=== PATIENT | male | born 1965 | race Caucasian/White ===

== ENCOUNTER → 2017-09-16 10:55 | Outpatient (REF) | payer OTHER, SELFPAY ==
[2017-09-16 14:42] LABS: Basophils # 0.1 K/mm3 (0-0.2); Basophils % 0.9 % (0.1-2.0); Eosinophils # 0.2 K/mm3 (0.0-0.4); Eosinophils % 1.6 % (0.1-12.0); Hematocrit 54.1 % (42.0-52.0); Hemoglobin 17.2 g/dL (14.1-18.0); Lymphocytes # 2.8 K/mm3 (0.7-4.5); Lymphocytes % 24.4 K/mm3 (10-50); Mean Corpuscular HGB Conc 31.7 g/dL (31.8-35.4); Mean Corpuscular Hemoglobin 30.7 pg (27.0-31.2); Mean Corpuscular Volume 96.9 fl (80-94); Mean Platelet Volume 7.5 fl (7.4-10.4); Monocytes # 0.7 K/mm3 (0.1-1.0); Monocytes % 5.7 % (1.7-9.3); Neutrophils # 7.8 K/mm3 (1.8-7.8); Neutrophils % 67.4 % (37.0-80.0); Platelet Count 394 K/mm3 (142-424); Red Blood Count 5.59 M/mm3 (4.60-6.20); Red Cell Distribution Width 13.4 % (11.5-17.5); White Blood Count 11.6 K/mm3 (4.8-10.8)
[2017-09-16 14:47] LABS: Alanine Aminotransferase 20 U/L (12-78); Albumin Level 4.5 gm/dL (3.4-5.0); Albumin/Globulin Ratio 1.2 (1.1-1.8); Alkaline Phosphatase 105 U/L (46-116); Anion Gap 15.4 mEq/L (5-15); Aspartate Amino Transferase 16 U/L (15-37); Bilirubin,Total 0.2 mg/dL (0.2-1.0); Blood Urea Nitrogen 11 mg/dL (7-18); Calcium 9.7 mg/dL (8.5-10.1); Carbon Dioxide 25 mmol/L (21.0-32.0); Chloride 101 mmol/L (98-107); Chol/HDL Ratio 5.7 (1-3.5); Cholesterol 268 mg/dL (140-200); Creatinine,Serum 1.17 mg/dL (0.70-1.30); Estimated Glomerular Filt Rate 65 ml/min (>60); GFR (African American) 79 ML/MIN (>60); Globulin 3.7 gm/dl (1.3-3.2); Glucose 107 mg/dL (74-106); HDL Cholesterol 47 mg/dL (27-67); LDL Cholesterol 201 mg/dL (0-130); Potassium 4.4 mmoL/L (3.5-5.1); Sodium 137 mmol/L (136-145); T4 (Thyroxine) 10.4 ug/dl (4.7-13.3); Thyroid Stimulating Hormone 1.72 uIU/ml (0.358-3.740); Total Protein,Serum 8.2 gm/dL (6.4-8.2); Triglycerides 102 mg/dL (30-200); VLDL Cholesterol 20 mg/dL (0-40)
[2017-09-19 10:44] LABS: PSA, Free 0.19 ng/mL; Prostate Specific Ag 0.9 ng/mL (0.0-4.0); Vitamin D 25 Hydroxy 27.3 ng/mL (30.0-100.0)
== END ==
LOC: LAB 10:55
PROVIDERS: Visit Provider Physician Assistant
DX: R59.1 Generalized enlarged lymph nodes (principal); R05 Cough
CPT/HCPCS: 80053; 80061; 82652; 84153; 84154; 84436; 84443; 85025; 87070; 87205

== ENCOUNTER → 2017-09-18 13:12 | Outpatient (CLI) | payer OTHER, SELFPAY ==
--- NOTE | 2017-09-18 13:15 | XR_ITS ---
XR chest 2V HISTORY: ITS.REASON: cough ORDERING PHYSICIAN: MONROE Rothman PATIENT AGE: 52 years COMPARISON: FINDINGS: The cardiomediastinal silhouette and pulmonary vascularity are within normal limits. The lungs are clear without infiltrates, suspicious nodules, or pleural effusions. No acute bony abnormalities. IMPRESSION: Negative chest, no acute finding
== END ==
PROVIDERS: PCP Physician Assistant; Visit Provider Physician Assistant
DX: R05 Cough (principal)
CPT/HCPCS: 71046

== ENCOUNTER → 2020-01-03 17:18 | Outpatient (CLI) | payer OTHER, SELFPAY ==
[2020-01-03 17:20] LABS: MANUAL DIFFERENTIAL MANUAL DIFFERENTIAL (MANUAL DIFF)
[2020-01-03 17:38] LABS: Chloride 103 mmol/L (98-107); Potassium 3.8 mmoL/L (3.5-5.1); Sodium 137 mmol/L (136-145)
[2020-01-03 17:40] LABS: Alanine Aminotransferase 14 U/L (12-78); Alkaline Phosphatase 83 U/L (38-126); Aspartate Amino Transferase 25 U/L (17-59); Basophils % 0.3 % (0.1-2.0); Bilirubin,Total 0.5 mg/dl (0.2-1.3); Blood Urea Nitrogen 7 mg/dl (9-20); Eosinophils # 0.1 K/mm3 (0.0-0.4); Eosinophils % 0.9 % (0.1-12.0); Estimated Glomerular Filt Rate 87 ml/min (>60); GFR (African American) 106 ML/MIN (>60); Hematocrit 46.4 % (42.0-52.0); Hemoglobin 15.4 g/dL (14.1-18.0); Lymphocytes # 2.8 K/mm3 (0.7-4.5); Lymphocytes % 21.5 % (10-50); Mean Corpuscular HGB Conc 33.2 g/dL (31.8-35.4); Mean Corpuscular Hemoglobin 31.5 pg (27.0-31.2); Mean Platelet Volume 8.9 fl (7.4-10.4); Monocytes # 0.7 K/mm3 (0.1-1.0); Monocytes % 5.7 % (1.7-9.3); Neutrophils # 9.3 K/mm3 (1.8-7.8); Neutrophils % 71.6 % (37.0-80.0); Platelet Count 402 K/mm3 (142-424); Red Blood Count 4.88 M/mm3 (4.60-6.20); Red Cell Distribution Width 14.3 % (11.5-17.5); White Blood Count 12.9 K/mm3 (4.8-10.8)
[2020-01-03 17:41] LABS: Albumin Level 4.5 g/dl (3.5-5.0); Albumin/Globulin Ratio 1.6 (1.1-1.8); Anion Gap 14.8 mEq/L (5-15); Calcium 9.8 mg/dl (8.4-10.2); Carbon Dioxide 23 mmol/L (22.0-30.0); Chol/HDL Ratio 5.1 (1-3.5); Cholesterol 228 mg/dl (140-200); Globulin 2.8 g/dL (1.3-3.2); Glucose 117 mg/dl (74-100); HDL Cholesterol 45 mg/dl (40-60); Total Protein,Serum 7.3 g/dl (6.3-8.2); Triglycerides 109 mg/dl (30-150); VLDL Cholesterol 22 mg/dL (0-40)
[2020-01-03 17:48] LABS: C-Reactive Protein 9.8 mg/L (0-4)
[2020-01-03 17:52] LABS: Direct LDL Cholesterol 167.78 mg/dL (100-129)
[2020-01-03 18:12] LABS: Thyroid Stimulating Hormone 1.74 uIU/mL (0.465-4.68)
[2020-01-03 18:20] LABS: Erythrocyte Sedimentation Rate 1 mm/hr (0-20)
[2020-01-03 18:53] LABS: Prostate Specific Ag Screen 0.8 ng/ml (0.0-4.0)
[2020-01-03 20:01] LABS: Lymphocytes % 24 % (10-50); Monocytes % 5 % (2-9); Neutrophils % 71 % (42-76); Platelet Estimate Normal; RBC Morphology Normal; Total Cells Counted 100
[2020-01-05 14:04] LABS: Anti-Centromere B Antibodies <0.2 AI (0.0-0.9); Anti-Jo-1 <0.2 AI (0.0-0.9); Anti-Smith Antibody <0.2 AI (0.0-0.9); Antichromatin Antibodies <0.2 AI (0.0-0.9); Antiscleroderma-70 Antibodies <0.2 AI (0.0-0.9); RNP Antibodies <0.2 AI (0.0-0.9); Sjogren's Anti-SS-A <0.2 AI (0.0-0.9); Sjogren's Anti-SS-B <0.2 AI (0.0-0.9)
[2020-01-06 08:56] LABS: Anti-DNA (DS) Ab Qn <1 IU/mL (0-9)
[2020-01-06 23:07] LABS: F001-IgE Egg White <0.10 kU/L (Class 0); F002-IgE Milk <0.10 kU/L (Class 0); F003-IgE Codfish <0.10 kU/L (Class 0); F004-IgE Wheat <0.10 kU/L (Class 0); F010-IgE Sesame Seed <0.10 kU/L (Class 0); F013-IgE Peanut <0.10 kU/L (Class 0); F014-IgE Soybean <0.10 kU/L (Class 0); F017-IgE Hazelnut (Filbert) <0.10 kU/L (Class 0); F020-IgE Almond <0.10 kU/L (Class 0); F024-IgE Shrimp <0.10 kU/L (Class 0); F256-IgE Walnut <0.10 kU/L (Class 0); F338-IgE Scallop <0.10 kU/L (Class 0)
[2020-01-07 09:07] LABS: F010-IgE Sesame Seed <0.10 kU/L (Class 0)
[2020-01-07 09:08] LABS: F202-IgE Cashew Nut <0.10 kU/L (Class 0)
== END ==
PROVIDERS: Visit Provider Physician Assistant
DX: L50.9 Urticaria, unspecified (principal); R21 Rash and other nonspecific skin eruption; R51 Headache; E78.5 Hyperlipidemia, unspecified; I10 Essential (primary) hypertension; J02.9 Acute pharyngitis, unspecified; Z12.5 Encounter for screening for malignant neoplasm of prostate
CPT/HCPCS: 80053; 80061; 84443; 85007; 85014; 85018; 85048; 85049; 85651; 86003; 86008; 86140; 86225; 86235; G0103

== ENCOUNTER 2021-07-19 09:28 | Emergency (ER) | payer OTHER, SELFPAY ==
--- NOTE | 2021-07-19 09:28 | ECG_ITS ---
APPROVED REPORT Exam: Resting ECG HR:62 bpm ECG Measurements Heart Rate 62 AXES NM 181 P 63 QRSd 86 QRS 69 QT 352 T 78 QTc 357 Conclusion SINUS RHYTHM NORMAL ECG UNCONFIRMED REPORT Electronically signed by : Channing Purcell MD 07/19/2021 20:19:44
--- NOTE | 2021-07-19 09:35 | HMH.EDGENADL ---
ED Disposition Clinical Impression: Chest pain Qualifiers: Chest pain type: unspecified Qualified Code(s): R07.9 - Chest pain, unspecified Disposition: Home, Self-Care Condition on Discharge: Good Instructions: DI for Chest Pain Additional Instructions: Aspirin 81 mg a day, [id number]. Lipitor 40 mg a day as prescribed. Coreg 6.25 mg a day as prescribed. See Dr. Castellanos in his office, call to make appointment. Additional instructions for CHEST PAIN: Return immediately if worsening chest pain, vomiting, shortness of breath, fever, coughing of blood. Prescriptions: carvediloL [Coreg 6.25mg Tablet] 6.25 mg PO BID #60 tab Transmission Status: Pending to [facility] Atorvastatin Calcium [Lipitor 40mg Tablet*] 40 mg PO HS #30 tab Transmission Status: Pending to [facility] Referrals: Provider,MD Crispin [Referring] - Guy Castellanos MD [Staff Physician] - - Critical Care Critical Care Time: No Attestation: On , the high probability of a clinically significant, sudden or life threatening deterioration of the following system(s) required my full and direct attention, intervention and personal management. The time I documented below is in addition to time spent performing reported procedures but includes the following listed in this critical care notation. Medical Decision Making - Piol Inquiry Pt receiving controlled substance: No Vital Signs: 07/19/21 09:47 Temperature 98.4 F Temperature Source Oral Pulse Rate [Left Radial] 76 Respiratory Rate 16 Blood Pressure [Right Arm] 148/88 H Blood Pressure Mean [Right Arm] 108 02 Sat by Pulse Oximetry 97 - Lab Data Lab Results 07/19/21 09:36: WBC 10.3, RBC 4.77, Hgb 15.2, Hct 44.8, MCV 93.8, MCH 31.8 H, MCHC 34.0, RDW 13.4, Plt Count 413, MPV 6.9 L, Neut % (Auto) 69.7, Lymph % (Auto) 23.8, [place] % (Auto) 5.0, Eos % (Auto) 1.3, Baso % (Auto) 0.2, Neut # (Auto) 7.2, Lymph # (Auto) 2.4, [place] # (Auto) 0.5, Eos # (Auto) 0.1, Baso # (Auto) 0.0 07/19/21 09:36: Sodium 133 L, Potassium 3.8, Chloride 102, Carbon Dioxide 25, Anion Gap 9.8, BUN 10, Creatinine 1.10, Estimated Creat Clear 80, Estimated GFR 69, Est GFR ( Amer) 83, Glucose 120 H, Calcium 8.3 L, Troponin I < 0.01 07/19/21 12:30: Troponin I < 0.01 Result diagrams: 07/19/21 09:36 07/19/21 09:36 Orders (Tests/Meds): ED MEDICATIONS Generic Name Dose Route Start Last Admin Trade Name Freq PRN Reason Stop Dose Admin Sodium Chloride 8 ml 07/19/21 10:08 Sodium Chloride 0.9% 10ml Vial IV 08/18/21 10:07 NEEDED PRN dilute pepcid Discontinued Medications Generic Name Dose Route Start Last Admin Trade Name Freq PRN Reason Stop Dose Admin Aspirin 324 mg 07/19/21 09:38 07/19/21 09:46 Aspirin 81mg Chewable Tablet PO 07/19/21 09:39 324 mg ONCE ONE Administration Famotidine 20 mg 07/19/21 10:08 07/19/21 10:22 Famotidine 20mg/2ml Vial IV 07/19/21 10:09 20 mg ONCE ONE Administration Loratadine 10 mg 07/20/21 10:12 Loratadine 10mg Tablet PO 07/20/21 10:13 ONCE ONE Loratadine 10 mg 07/19/21 10:12 07/19/21 10:52 Loratadine 10mg Tablet PO 07/19/21 10:13 10 mg ONCE ONE Administration Methylprednisolone Sodium Succinate 125 mg 07/19/21 10:08 07/19/21 10:22 Methylprednisolone Sod Succ 125mg Vial IV 07/19/21 10:09 125 mg ONCE ONE Administration ORDERS Category Date Time Status Consult to Cardiology [CONS] Routine Cons 07/19/21 10:13 Active Troponin I Q3H Lab 07/19/21 15:45 Ordered - Radiology Data #1 Image(s): Chest Image Reviewed: Yes I reviewed the patient's radiology image, Yes I have reviewed radiologist's interpretation Preliminary Findings: Normal/NAD Procedure(s): XR chest 2V Accession Number(s): [id number] cc: Abdoulaye Tracy MD; Josselin Loo~ FINAL REPORT CLINICAL HISTORY: chest pain COMPARISON: 09/18/2017 FINDINGS: 2 views of the chest
[2021-07-19 09:37] VITALS: BMI 24.0
--- NOTE | 2021-07-19 09:38 | XR_ITS ---
FINAL REPORT CLINICAL HISTORY: chest pain COMPARISON: 09/18/2017 FINDINGS: 2 views of the chest were obtained. The heart size is normal. The mediastinum is unremarkable. The lungs are hyperinflated consistent with COPD. There is no active disease. There are no pleural effusions. There is no pneumothorax. There is no acute osseous abnormality. IMPRESSION: No acute cardiopulmonary abnormality. Reviewed, Interpreted and Dictated by Abdoulaye Tracy III, MD Transcribed by Lexus Richardson Authenticated by Abdoulaye Tracy III, MD on 07/19/2021 11:09:24 AM [facility]
[2021-07-19 09:47] VITALS: BP 148/88; PULSE 76; RESP 16; TEMP 36.9; O2SAT 97; BMI 24.3
[2021-07-19 09:58] LABS: Basophils % 0.2 % (0.1-2.0); Eosinophils # 0.1 K/mm3 (0.0-0.4); Eosinophils % 1.3 % (0.1-12.0); Hematocrit 44.8 % (42.0-52.0); Hemoglobin 15.2 g/dL (14.1-18.0); Lymphocytes # 2.4 K/mm3 (0.7-4.5); Lymphocytes % 23.8 % (10-50); Mean Corpuscular Hemoglobin 31.8 pg (27.0-31.2); Mean Corpuscular Volume 93.8 fl (80-94); Mean Platelet Volume 6.9 fl (7.4-10.4); Monocytes # 0.5 K/mm3 (0.1-1.0); Neutrophils # 7.2 K/mm3 (1.8-7.8); Neutrophils % 69.7 % (37.0-80.0); Platelet Count 413 K/mm3 (142-424); Red Blood Count 4.77 M/mm3 (4.60-6.20); Red Cell Distribution Width 13.4 % (11.5-17.5); White Blood Count 10.3 K/mm3 (4.8-10.8)
[2021-07-19 10:01] LABS: Chloride 102 mmol/L (98-107); Potassium 3.8 mmoL/L (3.5-5.1); Sodium 133 mmol/L (136-145)
[2021-07-19 10:04] LABS: Anion Gap 9.8 mEq/L (5-15); Blood Urea Nitrogen 10 mg/dl (9-20); Calcium 8.3 mg/dl (8.4-10.2); Carbon Dioxide 25 mmol/L (22.0-30.0); Creatinine Clearance Estimated 80 mL/min (50-200); Estimated Glomerular Filt Rate 69 ml/min (>60); GFR (African American) 83 ML/MIN (>60); Glucose 120 mg/dl (74-100)
[2021-07-19 10:17] LABS: Troponin I < 0.01 ng/ml (0.00-0.034)
[2021-07-19 13:01] LABS: Troponin I < 0.01 ng/ml (0.00-0.034)
--- NOTE | 2021-07-19 13:16 | HMH.CNCARD ---
History of Present Illness Consult date: 07/19/21 Requesting physician: Chapo Rivera Consult reason: chest pain Chief complaint: chest pain History of present illness: This is a 56 year old male who presented to the ED with complaints of chest pain. He states that he has chest tightness all of the time and this has been constant for several months. He has had 3 episodes of intermittent chest pain that is a sharp, tight pain. First episode was 1 month ago and lasted about 10 minutes. Associated with shortness of breath, diaphoresis, nausea, and tingling left arm. Another episode 1 week ago similar to the first. States that he was driving and had to get out and lay down. Also notes that he has had hives ever since that episode. Today he says that he is under a lot of stress. He is in the [employer] business and his truck is down today. He was on the phone with customers all morning. Started having tightness in his chest at about 8 AM. It states the episodic pain has resolved, but the constant tightness he always has is still present. States that he smokes marijuana, but not cigarettes. States that his primary care provider had him on medications for cholesterol and hypertension but stopped taking those because his numbers were good. He does not have diabetes. He thinks he had a stress test years ago. He does not have known heart disease. No family history. [facility] History I have reviewed the patient's past medical history: Yes Medical History: Reports:: Hyperlipidemia, Hypertension Denies:: Cancer, Diabetes Mellitus Type 1, Diabetes Mellitus Type 2, Internal Pacemaker, MRSA, Seizures *Have you ever received a pneumonia vaccine?: No *Have you received a flu vaccine this season?: No Other Medical History: Reports: Arthritis Laterality Cases: Right: Arthroscopy Knee, Bilateral: ACL Repair Other Surgeries: Yes: No Previous Surgery, Colonoscopy, Hernia Repair. No: Pacemaker Amputation: No Fractures: No - *Social History Smoking Status: Never smoker Alcohol Intake: former Substance Use Type: marijuana *Occupational Status:: employed Housing: house Household Members: none *Travel in the last 8 weeks: None Family Hx:: Hypertension, Cancer Meds Home Medications Medication Instructions Recorded Confirmed Type diphenhydramine HCl 25 mg tablet 25 mg PO QHS #90 tab 01/03/20 10/17/20 Rx loratadine 10 mg tablet 10 mg PO DAILY #90 tab 01/03/20 10/17/20 Rx famotidine 20 mg tablet 20 mg PO DAILY #30 tab 01/07/20 10/17/20 Rx methylprednisolone 4 mg tablets in See Rx Instructions PO PER PKG DIR 01/07/20 10/17/20 Rx a dose pack #21 tab Atorvastatin Calcium [Lipitor 40mg 40 mg PO HS #30 tab 07/19/21 Rx Tablet*] carvediloL [Coreg 6.25mg 6.25 mg PO BID #60 tab 07/19/21 Rx Tablet] Allergies Allergy/AdvReac Type Severity Reaction Status Date / Time NO KNOWN ALLERGIES - NKA Allergy Unknown Uncoded 10/17/20 14:32 Exam Vital signs and Labs for Last 24 Hours: Temp Pulse Resp BP Pulse Ox 98.4 F 76 16 148/88 H 97 07/19/21 09:47 07/19/21 09:47 07/19/21 09:47 07/19/21 09:47 07/19/21 09:47 Laboratory Results - last 24 hr 07/19/21 09:36: WBC 10.3, RBC 4.77, Hgb 15.2, Hct 44.8, MCV 93.8, MCH 31.8 H, MCHC 34.0, RDW 13.4, Plt Count 413, MPV 6.9 L, Neut % (Auto) 69.7, Lymph % (Auto) 23.8, [place] % (Auto) 5.0, Eos % (Auto) 1.3, Baso % (Auto) 0.2, Neut # (Auto) 7.2, Lymph # (Auto) 2.4, [place] # (Auto) 0.5, Eos # (Auto) 0.1, Baso # (Auto) 0.0 07/19/21 09:36: Sodium 133 L, Potassium 3.8, Chloride 102, Carbon Dioxide 25, Anion Gap 9.8, BUN 10, Creatinine 1.10, Estimated Creat Clear 80, Estimated GFR 69, Est GFR ( Amer) 83, Glucose 120 H, Calcium 8.3 L, Troponin I < 0.01 07/19/21 12:30: Troponin I < 0.01 I & O for Last 24 hours: Intake & Output 07/16/21 07/17/21 07/18/21 07/19/21 23:59 23:59 23:59 23:59 Weight 170 lb Narrative: EKG is SR and normal with a rate of 62 bpm. - Constitutional no acute distres
[2021-07-19 13:22] VITALS: BP 141/78; PULSE 74; RESP 17; TEMP 36.9; O2SAT 98
== END 2021-07-19 13:34 | disposition home or self-care (01) ==
PROVIDERS: Emergency Provider Emergency Medicine; PCP Physician Assistant
DX: R07.9 Chest pain, unspecified (principal); I10 Essential (primary) hypertension; E78.5 Hyperlipidemia, unspecified; M19.90 Unspecified osteoarthritis, unspecified site
CPT/HCPCS: 71046; 80048; 84484; 85025; 93005; 96374; 96375; 99283

== ENCOUNTER → 2021-07-30 06:29 | Outpatient (CLI) | payer OTHER, SELFPAY ==
--- NOTE | 2021-07-30 06:30 | CA_ITS ---
APPROVED REPORT Exam: Exercise Treadmill Technologist: Fidelia Corral, Ht: 5 ft 10 in Wt: 175 lbs BSA: 1.97 m2 HR: 58 bpm BP: 148/93 mmHg Indications: Chest pain, Smoking history, shortness of breath Medical History Medications: Aspirin,,,,, Atorvastatin,,,,, Carvedilol,,,,, Stress Test Details Test: Vimal HR Resting HR: 64 bpm Max Heart Rate (APMHR): 162 bpm Max HR Achieved: 146 bpm Target HR (85% APMHR): 138 bpm % of APMHR: 90 Recovery HR: 81 bpm BP Resting BP: 148/93 mmHg Max BP: 190/94 mmHg Recovery BP: 147.0/97.0 mmHg ECG Clinical Exercise duration: 12:57 min Highest Stage Achieved: Exercise capacity: 14.8 METs Stress ECG Conclusion Nausea and CHEN before stress. Episode of vomiting before stress started. Test stopped due to: leg fatigue/burning Symptoms: SOA with peak exercise. No chest pain. Leg fatigue and burning. Arrhythmias/Ectopy: ST-T Changes: less than 1.5 mm depression Conclusion:normal GXT Test Summary REST . . . . . . . Sitting REST . . . . . . . Nausea REST . . . . . . . Standing REST 14:56 0.0 0.0 64 . 148/ 93 . . Stage 1 01:00 10.0 1.7 76 . . . . Stage 1 02:00 10.0 1.7 76 . . . . Stage 1 03:00 10.0 1.7 74 . 170/ 78 . . Stage 2 01:00 12.0 2.5 82 . . . . Stage 2 02:00 12.0 2.5 83 . . . . Stage 2 03:00 12.0 2.5 83 . 175/ 88 . . Stage 3 01:00 14.0 3.4 98 . . . . Stage 3 02:00 14.0 3.4 97 . . . . Stage 3 03:00 14.0 3.4 101 . 180/ 90 . . Stage 4 01:00 16.0 4.2 128 . . . . Stage 4 02:00 16.0 4.2 129 . . . . Stage 4 03:00 16.0 4.2 133 . 190/ 94 . . Stage 5 . . . . . . . Myoview Injected Stage 5 00:57 18.0 5.0 145 . . . Stop exercise at 12:57 RECOVERY 01:00 0.0 0.0 129 . . . . RECOVERY 02:00 0.0 0.0 107 . 172/ 84 . . RECOVERY 03:00 0.0 0.0 97 . 161/ 92 . . RECOVERY 04:00 0.0 0.0 100 . 161/ 92 . . RECOVERY 05:00 0.0 0.0 87 . 147/ 97 . . RECOVERY 05:22 0.0 0.0 91 . 147/ 97 . . Electronically signed by : Mandeep Navarro MD 07/30/2021 12:49:35
--- NOTE | 2021-07-30 06:30 | CT_ITS ---
FINAL REPORT TECHNIQUE: Axial CT images were performed from the lung apices through the upper abdomen. Coronal reformats were submitted. This study was performed with techniques to keep radiation doses as low as reasonably achievable (ALARA). Individualized dose reduction techniques using automated exposure control or adjustment of mA and/or kV according to the patient's size were employed. CLINICAL HISTORY: smoking history, chest pain FINDINGS: There is no axillary adenopathy. There is no hilar or mediastinal mass or adenopathy. Heart size is normal. There is no pericardial or pleural effusion. Limited images of the upper abdomen show 2 small hepatic masses which cannot be accurately characterized without contrast. These may represent cysts or hemangiomas. No suspicious infiltrate or nodule is identified on lung window images. IMPRESSION: 1. No acute pulmonary abnormality. 2. Small hepatic masses cannot be accurately characterized without contrast. These may represent cysts or hemangiomas. Reviewed, Interpreted and Dictated by Abdoulaye Tracy III, MD Transcribed by MONROE Franklin Authenticated by Abdoulaye Tracy III, MD on 07/30/2021 09:55:27 AM [facility]
--- NOTE | 2021-07-30 06:30 | NM_ITS ---
APPROVED REPORT Exam: Nuclear Stress Test Indication: Chest pain, SOB, HTN, High cholesterol, Tobacco use Patient Location: Outpatient Stress Tech: Fidelia Corral [place] Tech:Sarah Etienne, ARRT, RT (R)(N) Ht: 5 ft 10 in Wt: 170 lbs HR: 58 bpm BP: 148/93 mmHg BSA: 1.95 m2 BMI: 24.3 History: Chest pain, SOB, HTN, High cholesterol, Tobacco use Procedure: Patient exercised on Vimal protocol 12:57 minutes and sec, resting heart rate 58 bpm, resting blood pressure 148/93 mmHg, with exercise maximum heart rate achived was 146 bpm which is 90 % of the maximum predicted heart rate and blood pressure was 190/94 mmHg. Test was stopped due to leg fatigue. Patient denied any complaint of chest pain. Patient has Excellent exercise capacity, achieved 14.8 METs of workload on treadmill, the blood pressure response to exercise was Adequate. Electrocardiogram Resting electrocardiogram shows sinus rhythm, with exercise there is less than 1.[address] segment depression noted from the baseline EKG. The EKG portion of the exercise Myoview is negative for ischemia. Cardiac Stress and Resting SPECT Images: Cardiac Stress and Resting SPECT images were obtained using technetium 99m Myoview 32.9 mCi stress and 10.58 mCi at rest. Gated SPECT for analysis of segmental wall motion and calculation of the ejection fraction also done. Cardiac stress and resting SPECT images show a fixed defect involving the inferoseptal wall with normal contractility gated SPECT is likely secondary to soft tissue attenuation, no reversible ischemia seen. Computer derived ejection fraction is 55% with no regional wall motion abnormality, right ventricle is normal size and contractility. Conclusion: 1. The EKG portion of the exercise Myoview is negative for ischemia, patient has excellent exercise capacity achieved 14.8 METs of workload on treadmill, the blood pressure response to exercise was adequate, there was no exercise-induced chest discomfort. 2. No scintigraphic evidence of reversible ischemia seen, compared right ejection fraction is 55% with no regional wall motion abnormality, right ventricle is normal size and contractility. 3. Normal exercise Myoview study. Electronically signed by : Mandeep Navarro MD 07/30/2021 13:04:44
--- NOTE | 2021-07-30 06:30 | CA_ITS ---
APPROVED REPORT EXAM: Comprehensive 2D, Doppler, and color-flow Echocardiogram Crusher Plant Operator: Scarlet Lassiter CRT Ht: 5 ft 10 in Wt: 175lbs BSA: 1.97 BP: 156/96 mmHg Indications: Chest Pain, Shortness of Breath, Hyperlipidemia, Hypertension/HDD, bradycardia, marijuana smoker 2D Dimensions LVOT 2.08 cm (M/F) 1.5-2.5 LA Volume 23.50 mL LA Volume Index 11.90 mL/m2 (M/F) 16-34 M-Mode Dimensions RVDd 2.28 cm (0.9-2.6) LVDd 4.04 cm (3.5-5.7) LVDs 2.53 cm (3.5-5.7) IVSd 1.35 cm (0.6-1.1) PWd 0.88 cm (0.6-1.1) EF (Teich) 67.90% FS 37.40% EDV (Teich) 71.70 mL TAPSE 2.00 (<1.7) ESV (Teich) 23.00 mL LV Diastology E Decel Time 257.00 (160-240 msec) E/A Ratio 0.69 MED E' 11.70 (< 7 cm/sec) MED A' 11.00 cm/s E'/MED E' Ratio 4.22 (>14) LAT E' 11.30 (<10 cm/sec) LAT A' 11.00 cm/s E/LAT E' Ratio 4.37 (>14) Aortic Valve AO Peak GR. 5.40 mmHg Mitral Valve MV A Velocity 71.00 (40-130 cm/s) E/A Ratio 0.69 MV Decel. Time 257.00 (160-240 ms) Pulmonary Valve PV Peak Velocity 100.00 (50-150 cm/s) Tricuspid Valve TR P. Velocity 166.00 cm/s RAP Estimate 10.00 mmHg RVSP 21.10 mmHg Left Ventricle Left atrium is mildly enlarged, left ventricle is normal size, mild concentric left ventricular hypertrophy, visually estimated ejection fraction 55% with no regional wall motion abnormality, grade 1 diastolic dysfunction seen without tissue Doppler evidence of raise left atrial pressure. Right Ventricle Right atrium and right ventricle are normal size and contractility. Aortic Valve Aortic valve is minimally thickened and fibrosed, there is no aortic stenosis or aortic insufficiency. Mitral Valve Mitral valve grossly normal, there is no mitral stenosis, there is mild mitral regurgitation. Tricuspid Valve Tricuspid grossly normal there is mild tricuspid regurgitation. Pulmonic Valve Pulmonic valve is poorly visualized. Great Vessels Aortic root is normal size. Inferior vena cava is poorly visualized. Pericardium No significant pericardial effusion noted. Conclusion 1. Mildly enlarged left atrium, normal left ventricular size, mild concentric left ventricular hypertrophy, visually estimated ejection fraction 55% with no regional wall motion abnormality, grade 1 diastolic dysfunction seen without tissue Doppler evidence of raise left atrial pressure. 2. Mild mitral and tricuspid regurgitation. 3. No significant pericardial effusion. 4. Inferior vena cava is poorly visualized. Electronically signed by : Mandeep Navarro MD 07/30/2021 18:46:17
--- NOTE | 2021-07-30 09:15 | HMH.ITSHM ---
Current Home Medications as stated by this patient Denis Loo or retail service representative. []FAMOTIDINE CARVEDILOL ASA ATORVASTATIN
== END ==
PROVIDERS: PCP Physician Assistant; Visit Provider Internal Medicine Cardiovascular Disease
DX: R06.00 Dyspnea, unspecified (principal); R07.9 Chest pain, unspecified; R00.1 Bradycardia, unspecified; R53.83 Other fatigue
CPT/HCPCS: 71250; 78452; 93017; 93306; 95806; A9502

== ENCOUNTER 2021-07-30 10:55 | Emergency (ER) | payer OTHER, SELFPAY ==
--- NOTE | 2021-07-30 | ECG_ITS ---
APPROVED REPORT Exam: Resting ECG HR:70 bpm ECG Measurements Heart Rate 70 AXES SC 178 P 79 QRSd 96 QRS 70 QT 365 T 76 QTc 386 Conclusion SINUS RHYTHM MINIMAL VOLTAGE CRITERIA FOR LVH, CONSIDER NORMAL VARIANT [MEETS CRITERIA IN ONE OF: R(aVL), S(V1), R(V5), R(V5/V6)+S(V1)] BORDERLINE ECG UNCONFIRMED REPORT Electronically signed by : Channing Purcell MD 08/03/2021 16:13:11
[2021-07-30 10:56] VITALS: BP 135/84; PULSE 65; RESP 16; O2SAT 99; BMI 24.3
--- NOTE | 2021-07-30 11:23 | XR_ITS ---
FINAL REPORT CLINICAL HISTORY: chest pressure COMPARISON: 07/19/2021 FINDINGS: Two views of the chest were obtained. The heart size and pulmonary vascularity are within normal limits. The mediastinum is normal. No acute pulmonary abnormality is identified. There is no pneumothorax. The bony thorax is intact. IMPRESSION: No active cardiopulmonary disease. Reviewed, Interpreted and Dictated by Abdoulaye Tracy III, MD Transcribed by Lexus Richardson Authenticated by Abdoulaye Tracy III, MD on 07/30/2021 12:38:06 PM [facility]
[2021-07-30 11:29] LABS: Chloride 102 mmol/L (98-107); Sodium 132 mmol/L (136-145)
[2021-07-30 11:30] LABS: Potassium 4.2 mmoL/L (3.5-5.1)
[2021-07-30 11:32] LABS: Basophils # 0.1 K/mm3 (0-0.2); Basophils % 0.4 % (0.1-2.0); Blood Urea Nitrogen 10 mg/dl (9-20); Creatinine Clearance Estimated 98 mL/min (50-200); Eosinophils # 0.1 K/mm3 (0.0-0.4); Eosinophils % 0.7 % (0.1-12.0); Estimated Glomerular Filt Rate 87 ml/min (>60); GFR (African American) 105 ML/MIN (>60); Hematocrit 46.7 % (42.0-52.0); Hemoglobin 15.7 g/dL (14.1-18.0); Lymphocytes # 2.4 K/mm3 (0.7-4.5); Lymphocytes % 14.8 % (10-50); Mean Corpuscular HGB Conc 33.7 g/dL (31.8-35.4); Mean Corpuscular Hemoglobin 31.6 pg (27.0-31.2); Mean Corpuscular Volume 93.8 fl (80-94); Mean Platelet Volume 7.2 fl (7.4-10.4); Monocytes # 0.9 K/mm3 (0.1-1.0); Monocytes % 5.3 % (1.7-9.3); Neutrophils # 12.6 K/mm3 (1.8-7.8); Neutrophils % 78.8 % (37.0-80.0); Platelet Count 478 K/mm3 (142-424); Red Blood Count 4.98 M/mm3 (4.60-6.20); Red Cell Distribution Width 13.2 % (11.5-17.5)
[2021-07-30 11:33] LABS: Anion Gap 12.2 mEq/L (5-15); Calcium 8.8 mg/dl (8.4-10.2); Carbon Dioxide 22 mmol/L (22.0-30.0); Glucose 116 mg/dl (74-100)
--- NOTE | 2021-07-30 11:37 | PC.NURSE ---
SPOKE WITH SAIDA REGARDING PT , SHE WAS UNAWARE OF ANYTHING HAPPENING SHE IS GONNA WAIT ON LABS AND BE OVER TO SEE PT
[2021-07-30 11:42] LABS: MANUAL DIFFERENTIAL MANUAL DIFFERENTIAL (MANUAL DIFF)
[2021-07-30 11:46] LABS: Troponin I < 0.01 ng/ml (0.00-0.034)
[2021-07-30 12:00] VITALS: BP 134/83; PULSE 59; RESP 18; O2SAT 98
[2021-07-30 12:02] LABS: Lymphocytes % 18 % (10-50); Monocytes % 2 % (2-9); Neutrophils % 80 % (42-76); Platelet Estimate Marked Increase; RBC Morphology Normal; Total Cells Counted 100
[2021-07-30 12:30] VITALS: BP 128/85; PULSE 58; RESP 20; O2SAT 98
[2021-07-30 13:00] VITALS: BP 133/88; PULSE 58; RESP 20; O2SAT 99
--- NOTE | 2021-07-30 13:03 | HMH.EDGENADL ---
ED Disposition Clinical Impression: Nausea Chest pain Qualifiers: Chest pain type: unspecified Qualified Code(s): R07.9 - Chest pain, unspecified Disposition: Home, Self-Care Condition on Discharge: Good Instructions: DI for Atypical Chest Pain, DI for Nausea -- Adult Additional Instructions: Patient will follow up with primary care physician in 2-3 days for further management. Please return if symptoms reoccur. Referrals: Josselin Loo PA [Primary Care Provider] - Time of Disposition: 15:30 - Critical Care Critical Care Time: No Attestation: On 07/30/21, the high probability of a clinically significant, sudden or life threatening deterioration of the following system(s) required my full and direct attention, intervention and personal management. The time I documented below is in addition to time spent performing reported procedures but includes the following listed in this critical care notation. Medical Decision Making - Medical Records Medical records reviewed: Yes: I reviewed the patient's medical records. - [place] Inquiry Pt receiving controlled substance: No Vital Signs: 07/30/21 10:56 07/30/21 12:00 07/30/21 12:30 Temperature Pulse Rate 59 L 58 L Pulse Rate [Left Radial] 65 Respiratory Rate 16 18 20 Blood Pressure 134/83 128/85 Blood Pressure [Right Arm] 135/84 Blood Pressure Mean 106 99 Blood Pressure Mean [Right Arm] 101 Blood Pressure Source [Right Arm] Automatic Cuff Blood Pressure Position [Right Arm] Sitting 02 Sat by Pulse Oximetry 99 98 98 Oxygen Delivery Method Room Air 07/30/21 13:00 07/30/21 14:00 07/30/21 15:20 Temperature 98.1 F Pulse Rate 58 L 62 66 Pulse Rate [Left Radial] Respiratory Rate 20 18 16 Blood Pressure 133/88 137/87 142/82 H Blood Pressure [Right Arm] Blood Pressure Mean 97 102 Blood Pressure Mean [Right Arm] Blood Pressure Source [Right Arm] Blood Pressure Position [Right Arm] 02 Sat by Pulse Oximetry 99 96 Oxygen Delivery Method Room Air - Lab Data Lab results reviewed: Yes: I reviewed the patient's lab results. Lab Results 07/30/21 11:05: WBC 16.0 H, RBC 4.98, Hgb 15.7, Hct 46.7, MCV 93.8, MCH 31.6 H, MCHC 33.7, RDW 13.2, Plt Count 478 H, MPV 7.2 L, Neut % (Auto) 78.8, Lymph % (Auto) 14.8, [place] % (Auto) 5.3, Eos % (Auto) 0.7, Baso % (Auto) 0.4, Neut # (Auto) 12.6 H, Lymph # (Auto) 2.4, [place] # (Auto) 0.9, Eos # (Auto) 0.1, Baso # (Auto) 0.1, Total Counted 100, Neutrophils % (Manual) 80 H, Lymphocytes % (Manual) 18, Monocytes % (Manual) 2, Platelet Estimate Marked increase, RBC Morphology Normal 07/30/21 11:05: Sodium 132 L, Potassium 4.2, Chloride 102, Carbon Dioxide 22, Anion Gap 12.2, BUN 10, Creatinine 0.90, Estimated Creat Clear 98, Estimated GFR 87, Est GFR ( Amer) 105, Glucose 116 H, Calcium 8.8, Troponin I < 0.01 07/30/21 14:14: Troponin I < 0.01 Result diagrams: 07/30/21 11:05 07/30/21 11:05 Orders (Tests/Meds): ED MEDICATIONS Discontinued Medications Generic Name Dose Route Start Last Admin Trade Name Freq PRN Reason Stop Dose Admin Ondansetron HCl 4 mg 07/30/21 12:18 07/30/21 12:20 Ondansetron 4mg/2ml Vial IV 07/30/21 12:19 4 mg ONCE ONE Administration Sodium Chloride 10 ml 07/30/21 11:23 Sodium Chloride 0.9% 10ml Flush Syringe IV 08/29/21 11:22 NEEDED PRN Maintain IV Site Medical Decision Narrative: Mr. Loo is a 56 yo male presenting to the ED for N/V following a stress test. Patient is afebrile and hemodynamically stable on arrival, non toxic appearing. Patient physical exam is benign. differentials to consider but not limited to include: [place]/CAD, vasovagal response, caffeine associated as patient reports he get caffeine withdrawals and has not had his coffee today, viral mediated illness. Bedside ECG is non actionable, no acute signs of ischemia. Basic labs, trop are non actionable. Patient is given fluid in the ED and observed, upon reasses
--- NOTE | 2021-07-30 13:26 | PC.NURSE ---
SAIDA HERE TO SEE PT
--- NOTE | 2021-07-30 13:26 | PC.NURSE ---
kenyon juddn at BS
--- NOTE | 2021-07-30 13:29 | PC.NURSE ---
updated and pt about plan of care
--- NOTE | 2021-07-30 13:37 | HMH.CNCARD ---
History of Present Illness Consult date: 07/30/21 Requesting physician: Delores Alejandra Consult reason: known to you Chief complaint: vomiting History of present illness: This is a 56-year-old white gentleman who presented to the emergency department following his stress test for vomiting. The patient had an episode of nausea and vomiting just prior to his stress test. He also was complaining of a severe headache. The patient attributed the symptoms to caffeine withdrawal since he was not allowed to consume caffeine prior to the stress test. The patient states that he drinks a pot of coffee every morning and that he felt bad prior to the stress test because of caffeine withdrawal. The patient still wanted to proceed with the stress test. He walked on the treadmill with no EKG changes and no symptoms of nausea, vomiting or headache during the stress test. Following his images after the stress test the patient had onset of nausea and vomiting again. He states that he still has a headache and is still attributing all of his symptoms to not having any caffeine. He denies any chest pain or pressure. He denies any shortness of breath or edema. He denies any fever, chills, diarrhea, PND or orthopnea. [facility] History I have reviewed the patient's past medical history: Yes Medical History: Reports:: Hyperlipidemia, Hypertension Denies:: Cancer, Diabetes Mellitus Type 1, Diabetes Mellitus Type 2, Internal Pacemaker, MRSA, Seizures *Have you ever received a pneumonia vaccine?: No *Have you received a flu vaccine this season?: No Other Medical History: Reports: Arthritis Laterality Cases: Right: Arthroscopy Knee, Bilateral: ACL Repair Other Surgeries: Yes: No Previous Surgery, Colonoscopy, Hernia Repair. No: Pacemaker Amputation: No Fractures: No - *Social History Smoking Status: Never smoker Alcohol Intake: former Substance Use Type: marijuana *Occupational Status:: employed Housing: house Household Members: none *Travel in the last 8 weeks: None Family Hx:: Hypertension, Cancer Meds Home Medications Medication Instructions Recorded Confirmed Type Atorvastatin Calcium [Lipitor 40mg 40 mg PO HS #30 tab 07/19/21 07/20/21 Rx Tablet*] carvediloL [Coreg 6.25mg 6.25 mg PO BID #60 tab 07/19/21 07/20/21 Rx Tablet] aspirin 81 mg tablet,delayed 81 mg PO DAILY 07/20/21 07/20/21 History release famotidine 20 mg tablet 20 mg PO DAILY #30 tab 07/23/21 Rx Allergies Allergy/AdvReac Type Severity Reaction Status Date / Time omeprazole Allergy Severe Hives Verified 07/23/21 15:36 Exam Vital signs and Labs for Last 24 Hours: Pulse Resp BP Pulse Ox 58 L 20 133/88 99 07/30/21 13:00 07/30/21 13:00 07/30/21 13:00 07/30/21 13:00 Laboratory Results - last 24 hr 07/30/21 11:05: WBC 16.0 H, RBC 4.98, Hgb 15.7, Hct 46.7, MCV 93.8, MCH 31.6 H, MCHC 33.7, RDW 13.2, Plt Count 478 H, MPV 7.2 L, Neut % (Auto) 78.8, Lymph % (Auto) 14.8, [place] % (Auto) 5.3, Eos % (Auto) 0.7, Baso % (Auto) 0.4, Neut # (Auto) 12.6 H, Lymph # (Auto) 2.4, [place] # (Auto) 0.9, Eos # (Auto) 0.1, Baso # (Auto) 0.1, Total Counted 100, Neutrophils % (Manual) 80 H, Lymphocytes % (Manual) 18, Monocytes % (Manual) 2, Platelet Estimate Marked increase, RBC Morphology Normal 07/30/21 11:05: Sodium 132 L, Potassium 4.2, Chloride 102, Carbon Dioxide 22, Anion Gap 12.2, BUN 10, Creatinine 0.90, Estimated Creat Clear 98, Estimated GFR 87, Est GFR ( Amer) 105, Glucose 116 H, Calcium 8.8, Troponin I < 0.01 I & O for Last 24 hours: Intake & Output 07/27/21 07/28/21 07/29/21 07/30/21 23:59 23:59 23:59 23:59 Weight 170 lb Narrative: Myoview stress test shows: 1. The EKG portion of the exercise Myoview is negative for ischemia, patient has excellent exercise capacity achieved 14.8 METs of workload on treadmill, the blood pressure response to exercise was adequate, there was no exercise-induced chest discomfort. 2. No scintigraphic evidence of reve
--- NOTE | 2021-07-30 13:38 | PC.NURSE ---
PT FEELING MUCH BETTER NAUSEA GONE , PT DRINKING COFFEE
[2021-07-30 14:00] VITALS: BP 137/87; PULSE 62; RESP 18; O2SAT 96
--- NOTE | 2021-07-30 14:13 | PC.NURSE ---
RT was at BS at this time to explain outpt sleep study to pt-pt was already scheduled to have outpt sleep study prior to ER visit.
[2021-07-30 15:02] LABS: Troponin I < 0.01 ng/ml (0.00-0.034)
[2021-07-30 15:20] VITALS: BP 142/82; PULSE 66; RESP 16; TEMP 36.7; O2SAT 98
== END 2021-07-30 15:21 | disposition home or self-care (01) ==
PROVIDERS: Emergency Provider Student in an Organized Health Care Education/Training Program; PCP Physician Assistant
DX: R07.9 Chest pain, unspecified (principal); R11.2 Nausea with vomiting, unspecified; I10 Essential (primary) hypertension; E78.5 Hyperlipidemia, unspecified; F17.210 Nicotine dependence, cigarettes, uncomplicated; Z79.899 Other long term (current) drug therapy
CPT/HCPCS: 36415; 71045; 80048; 84484; 85007; 85025; 93005; 96374; 99284; J2405

== ENCOUNTER → 2022-05-20 22:32 | Outpatient (CLI) | payer OTHER, SELFPAY ==
[2022-05-20 19:11] LABS: Basophils # 0.1 K/mm3 (0-0.2); Basophils % 1.1 % (0.1-2.0); Eosinophils # 0.3 K/mm3 (0.0-0.4); Eosinophils % 2.6 % (0.1-12.0); Hemoglobin 14.9 g/dL (14.1-18.0); Lymphocytes # 3.9 K/mm3 (0.7-4.5); Lymphocytes % 32.6 % (10-50); Mean Corpuscular HGB Conc 32.4 g/dL (31.8-35.4); Mean Corpuscular Hemoglobin 30.8 pg (27.0-31.2); Mean Corpuscular Volume 95.1 fl (80-94); Mean Platelet Volume 9.2 fl (7.4-10.4); Monocytes # 0.7 K/mm3 (0.1-1.0); Neutrophils % 57.6 % (37.0-80.0); Platelet Count 403 K/mm3 (142-424); Red Blood Count 4.84 M/mm3 (4.60-6.20); Red Cell Distribution Width 13.3 % (11.5-17.5); White Blood Count 12.1 K/mm3 (4.8-10.8)
[2022-05-20 19:18] LABS: Alanine Aminotransferase 17 U/L (12-78); Albumin Level 4.5 g/dl (3.5-5.0); Albumin/Globulin Ratio 1.7 (1.1-1.8); Alkaline Phosphatase 101 U/L (38-126); Anion Gap 10.9 mEq/L (5-15); Aspartate Amino Transferase 24 U/L (17-59); Bilirubin,Total 0.2 mg/dl (0.2-1.3); Blood Urea Nitrogen 17 mg/dl (9-20); Calcium 9.8 mg/dl (8.4-10.2); Carbon Dioxide 28 mmol/L (22.0-30.0); Chloride 102 mmol/L (98-107); Chol/HDL Ratio 3.2 (1-3.5); Cholesterol 146 mg/dl (140-200); Estimated Glomerular Filt Rate 52 ml/min (>60); GFR (African American) 63 ML/MIN (>60); Globulin 2.6 g/dL (1.3-3.2); Glucose 96 mg/dl (74-100); HDL Cholesterol 46 mg/dl (40-60); Potassium 4.9 mmoL/L (3.5-5.1); Sodium 136 mmol/L (136-145); Total Protein,Serum 7.1 g/dl (6.3-8.2); Triglycerides 135 mg/dl (30-150); VLDL Cholesterol 27 mg/dL (0-40)
[2022-05-20 19:30] LABS: Direct LDL Cholesterol 81.07 mg/dL (100-129)
[2022-05-20 19:35] LABS: 25-OH Vitamin D, Total 40.3 ng/mL (30-100)
[2022-05-20 19:49] LABS: Prostate Specific Ag Screen 0.7 ng/ml (0.0-4.0); Thyroid Stimulating Hormone 2.32 uIU/mL (0.465-4.68)
== END ==
PROVIDERS: Visit Provider Physician Assistant
DX: Z00.00 Encounter for general adult medical examination without abnormal findings (principal); I10 Essential (primary) hypertension; E55.9 Vitamin D deficiency, unspecified; E78.5 Hyperlipidemia, unspecified; Z12.5 Encounter for screening for malignant neoplasm of prostate
CPT/HCPCS: 80053; 80061; 82306; 84443; 85025; G0103

== ENCOUNTER → 2022-05-27 08:50 | Outpatient (CLI) | payer OTHER, SELFPAY ==
[2022-05-27 18:37] LABS: Anion Gap 12.4 mEq/L (5-15); Blood Urea Nitrogen 9 mg/dl (9-20); Calcium 9.6 mg/dl (8.4-10.2); Carbon Dioxide 27 mmol/L (22.0-30.0); Chloride 103 mmol/L (98-107); Estimated Glomerular Filt Rate 69 ml/min (>60); GFR (African American) 83 ML/MIN (>60); Glucose 115 mg/dl (74-100); Potassium 4.4 mmoL/L (3.5-5.1); Sodium 138 mmol/L (136-145)
== END ==
PROVIDERS: PCP Emergency Medicine; Visit Provider Emergency Medicine
DX: I10 Essential (primary) hypertension (principal)
CPT/HCPCS: 80048

== ENCOUNTER 2022-07-31 17:52 | Emergency (ER) | payer OTHER, SELFPAY ==
[2022-07-31 17:53] VITALS: BP 150/92; PULSE 69; RESP 16; TEMP 36.6; O2SAT 98; BMI 23.7
[2022-07-31 18:00] VITALS: BP 130/89; PULSE 74; O2SAT 95
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
[2022-07-31 18:30] VITALS: BP 143/86; PULSE 60; O2SAT 91
[2022-07-31 20:06] VITALS: BP 129/84; PULSE 68; RESP 17; TEMP 36.8; O2SAT 98
--- NOTE | 2022-07-31 20:07 | PC.NURSE ---
Rechecked pt condition. Pt provided with drink.
== END 2022-07-31 20:26 | disposition home or self-care (01) ==
PROVIDERS: Emergency Provider Emergency Medicine; PCP Physician Assistant
DX: S06.0X0A Concussion without loss of consciousness, initial encounter (principal); E78.5 Hyperlipidemia, unspecified; I10 Essential (primary) hypertension; E55.9 Vitamin D deficiency, unspecified; F17.210 Nicotine dependence, cigarettes, uncomplicated; R05.9 Cough, unspecified; R53.83 Other fatigue; G47.39 Other sleep apnea
CPT/HCPCS: 70450; 71045; 72125; 72170; 96374; 99285; J2405

== ENCOUNTER → 2022-12-19 17:57 | Outpatient (CLI) | payer OTHER, SELFPAY ==
[2022-12-19 13:26] LABS: Alanine Aminotransferase 35 U/L (12-78); Albumin Level 4.4 g/dl (3.5-5.0); Albumin/Globulin Ratio 1.7 (1.1-1.8); Alkaline Phosphatase 83 U/L (38-126); Anion Gap 11.2 mEq/L (5-15); Aspartate Amino Transferase 36 U/L (17-59); Bilirubin,Total 0.3 mg/dl (0.2-1.3); Blood Urea Nitrogen 11 mg/dl (9-20); Carbon Dioxide 28 mmol/L (22.0-30.0); Chloride 98 mmol/L (98-107); Chol/HDL Ratio 3.8 (1-3.5); Cholesterol 106 mg/dl (140-200); Estimated Glomerular Filt Rate 76 ml/min (>60); GFR (African American) 93 ML/MIN (>60); Globulin 2.6 g/dL (1.3-3.2); Glucose 114 mg/dl (74-100); HDL Cholesterol 28 mg/dl (40-60); Potassium 4.2 mmoL/L (3.5-5.1); Sodium 133 mmol/L (136-145); Triglycerides 114 mg/dl (30-150); VLDL Cholesterol 23 mg/dL (0-40)
[2022-12-19 13:37] LABS: Direct LDL Cholesterol 62.16 mg/dL (100-129)
[2022-12-19 16:25] LABS: Basophils % 0.7 % (0.1-2.0); Eosinophils # 0.1 K/mm3 (0.0-0.4); Eosinophils % 1.4 % (0.1-12.0); Hemoglobin 15.9 g/dL (14.1-18.0); Lymphocytes # 1.4 K/mm3 (0.7-4.5); Lymphocytes % 31.4 % (10-50); Mean Corpuscular HGB Conc 32.3 g/dL (31.8-35.4); Mean Corpuscular Hemoglobin 30.7 pg (27.0-31.2); Mean Corpuscular Volume 94.9 fl (80-94); Mean Platelet Volume 7.9 fl (7.4-10.4); Monocytes # 0.7 K/mm3 (0.1-1.0); Monocytes % 15.2 % (1.7-9.3); Neutrophils # 2.3 K/mm3 (1.8-7.8); Neutrophils % 51.4 % (37.0-80.0); Platelet Count 257 K/mm3 (142-424); Red Blood Count 5.17 M/mm3 (4.60-6.20); Red Cell Distribution Width 13.4 % (11.5-17.5); White Blood Count 4.5 K/mm3 (4.8-10.8)
== END ==
PROVIDERS: PCP Nurse Practitioner Family; Visit Provider Nurse Practitioner Family
DX: I10 Essential (primary) hypertension (principal); E78.5 Hyperlipidemia, unspecified; R06.02 Shortness of breath
CPT/HCPCS: 80053; 80061; 85025

== ENCOUNTER → 2022-12-20 14:15 | Outpatient (CLI) | payer OTHER, SELFPAY ==
[2022-12-20 14:42] LABS: Occult Blood,Stool Positive (Negative)
== END ==
PROVIDERS: PCP Nurse Practitioner Family; Visit Provider Nurse Practitioner Family
DX: R19.5 Other fecal abnormalities (principal)
CPT/HCPCS: 82272; G0328

== ENCOUNTER → 2022-12-26 08:45 | Outpatient (CLI) | payer OTHER, SELFPAY ==
[2022-12-26 10:30] VITALS: PULSE 57; PULSE 61
== END ==
PROVIDERS: PCP Nurse Practitioner Family; Visit Provider Nurse Practitioner Family
DX: R06.02 Shortness of breath (principal)
CPT/HCPCS: 94060; 94618; 94640

== ENCOUNTER → 2022-12-31 09:04 | Outpatient (CLI) | payer OTHER, SELFPAY ==
--- NOTE | 2022-12-31 09:04 | US_ITS ---
FINAL REPORT TECHNIQUE: Ultrasound images of the testicles were obtained bilaterally. Color Doppler images were obtained. CLINICAL HISTORY: N49.2 - Inflammatory disorders of scrotum COMPARISON: None FINDINGS: The testicles are normal in size and echotexture bilaterally. The left testicle measures 3.7 cm in length, and the right measures 4.7 cm in length. Arterial flow is identified bilaterally. There is a small hydrocele on the left. There are septated cystic masses superior to the testicles bilaterally, measuring 3.8 cm in diameter on the right side and 7 cm on the left side. IMPRESSION: Septated cystic masses superior to the testicles bilaterally, most likely either spermatoceles or complex hydroceles. Reviewed, Interpreted and Dictated by Abdoulaye Tracy III, MD Transcribed by Brianda Hernández Authenticated and [facility]
--- NOTE | 2022-12-31 09:04 | XR_ITS ---
FINAL REPORT CLINICAL HISTORY: SOA, chest pain, cough COMPARISON: July 2022 FINDINGS: Two views of the chest were obtained. The heart size and pulmonary vascularity are within normal limits. The mediastinum is normal. The lungs are hyperinflated consistent with COPD. No acute pulmonary abnormality is identified. There is no pneumothorax. The bony thorax is intact. IMPRESSION: No active cardiopulmonary disease. Reviewed, Interpreted and Dictated by Abdoulaye Tracy III, MD Transcribed by Flynn Green Authenticated and [facility]
== END ==
PROVIDERS: PCP Nurse Practitioner Family; Visit Provider Nurse Practitioner Family
DX: R06.02 Shortness of breath (principal); N49.2 Inflammatory disorders of scrotum
CPT/HCPCS: 71046; 76870

== ENCOUNTER → 2023-01-14 13:01 | Outpatient (CLI) | payer OTHER, SELFPAY | PROVIDERS: PCP Physician Assistant; Visit Provider Nurse Practitioner Family | DX: G47.33 Obstructive sleep apnea (adult) (pediatric) (principal); R06.83 Snoring; R53.83 Other fatigue | CPT/HCPCS: G0399 ==

== ENCOUNTER 2023-03-06 09:45 | Day surgery (SDC) | payer OTHER, SELFPAY ==
[2023-02-21 12:36] VITALS: BMI 24.0
[2023-03-06] VITALS (7 sets, daily range): BP systolic 110–151; BP diastolic 68–101; PULSE 50–76; RESP 14–17; TEMP 36.2–36.6; O2SAT 94–98
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
--- NOTE | 2023-03-06 11:25 | HMH.SCOPE ---
Procedure: Date: 03/06/23 Patient Date of :: 1965 Procedure Performed:: Diagnostic EGD Indications:: Weight loss, Guaiac+ stool Performing Provider:: Antelmo Auguste MD Referring Provider:: Cody Lopez APRN Sedation:: Propofol Procedure:: The gastroscope was gently passed through the incisoral orifice into the oral cavity and under direct visualization the esophagus was intubated. The endoscope was passed down the esophagus, through the stomach, and into the duodenum. Color, texture, mucosa, and anatomy of the esophagus, stomach, and duodenum were carefully examined with the scope. Findings:: Oropharynx: normal Esophagus: normal, grade A esophagitis EG Junction: intact at 40 cm, hiatus hernia noted Cardia: normal Fundus: normal Body: normal Antrum: normal Duodenal bulb: normal Duodenum (second and third portion): normal Impression: Hiatus hernia with grade A esophagitis Recommendations:: Symptomatic therapy with PPI Complications:: None Estimated blood obtained (mL): 0 Colonoscopy Component Colonoscopy Component Was a colonoscopy performed during today's procedure?: No
--- NOTE | 2023-03-06 11:28 | P.PCN_ITS ---
Procedure: Date: 03/06/23 Patient Date of :: 1965 Procedure Performed:: Diagnostic colonoscopy & biopsy Indications:: +Guaiac stool, weight loss Performing Provider:: Antelmo Auguste MD Referring Provider:: Cody Lopez APRN Sedation:: Propofol Procedure:: After placing the patient in the left lateral decubitus position, the colonoscopy was gently inserted into the rectum and under direct visualization a dvanced to the cecum which was identified by transillumination in the right lower quadrant, identification of the ileocecal valve, appendiceal orifice, and cecal strap. Color, texture, mucosa, and anatomy of the colon were carefully examined with the scope. Findings:: Anal canal: normal Rectum: normal Sigmoid colon: normal, small o.3cm polyp identified and removed with biopsy forceps Descending colon: normal without polyps or inflammatory changes Splenic flexure: normal Transverse colon: normal without polyps or inflammatory changes Hepatic flexure: normal Ascending colon: normal, minor post op changes noted Cecum: normal Terminal ileum: not visualized Impression: Small sigmoid polyp. Specimens:: Sigmoid polyp Recommendations:: Follow up examination in about FIVE years or so, sooner if clinically indicated in view of polyp found. Complications:: None Estimated blood obtained (mL): 0 Colonoscopy Component Colonoscopy Component Was a colonoscopy performed during today's procedure?: Yes Recommended follow up colonoscopy of at least 10 years?: No If no, follow up colonoscopy recommended in ___ years?: FIVE Reason for not recommending >/= 10 yr follow-up interval?: As noted above
== END 2023-03-06 12:15 | disposition home or self-care (01) ==
PROVIDERS: PCP Nurse Practitioner Family; Visit Provider Internal Medicine Gastroenterology
PROC: 0DJ08ZZ Inspection of Upper Intestinal Tract, Via Natural or Artificial Opening Endoscopic (ICD-10-PCS; CPT 43235; principal; 2023-03-06 11:00)
DX: K92.1 Melena (principal); R63.4 Abnormal weight loss; K44.9 Diaphragmatic hernia without obstruction or gangrene; K20.90 Esophagitis, unspecified without bleeding; K63.5 Polyp of colon
CPT/HCPCS: 45380; 44376; J2405; J2704

== ENCOUNTER → 2023-04-14 14:27 | Outpatient (CLI) | payer OTHER, SELFPAY ==
--- NOTE | 2023-04-14 14:36 | CT_ITS ---
FINAL REPORT CLINICAL HISTORY: lung cancer screening, patient doesnt smoke and has never smoked. Exposure to asbestos, diesel fumes, and coal smoke. Patient is also exposed to second hand smoke. FINDINGS: CTDI vol (mGy): 2.90 DLP: 112.[address] images of the chest were obtained using the low-dose protocol for screening. There is no evidence of mediastinal or hilar mass or adenopathy. No axillary mass or adenopathy is identified. On the lung window images, a subtle nodule is seen in the posterior right lower lobe measuring 4 mm on image 227 of series 2. Limited imaging of the upper abdomen demonstrates benign appearing cysts in the liver. IMPRESSION: Subtle nodule in the posterior right lower lobe measuring 4 mm. Lung RADS category 2. Recommend 12 month followup low-dose CT for further evaluation. Reviewed, Interpreted and Dictated by Cuong Arango MD Transcribed by Jyoti Quiroz Authenticated and [facility]
== END ==
PROVIDERS: PCP Physician Assistant; Visit Provider Internal Medicine Pulmonary Disease
DX: F17.210 Nicotine dependence, cigarettes, uncomplicated (principal)
CPT/HCPCS: 71271

== ENCOUNTER 2024-02-04 09:30 | Outpatient (CLI) | payer OTHER, SELFPAY ==
[2024-02-05 12:14] LABS: Basophils # 0.2 K/mm3 (0-0.2); Basophils % 2.3 % (0.1-2.0); Eosinophils # 0.3 K/mm3 (0.0-0.4); Hematocrit 45.1 % (42.0-52.0); Hemoglobin 14.3 g/dL (14.1-18.0); Lymphocytes # 2.4 K/mm3 (0.7-4.5); Lymphocytes % 27.9 % (10-50); Mean Corpuscular HGB Conc 31.7 g/dL (31.8-35.4); Mean Corpuscular Hemoglobin 31.6 pg (27.0-31.2); Mean Corpuscular Volume 99.5 fl (80-94); Mean Platelet Volume 8.3 fl (7.4-10.4); Monocytes # 0.5 K/mm3 (0.1-1.0); Monocytes % 5.7 % (1.7-9.3); Neutrophils # 5.4 K/mm3 (1.8-7.8); Neutrophils % 61.1 % (37.0-80.0); Platelet Count 382 K/mm3 (142-424); Red Blood Count 4.54 M/mm3 (4.60-6.20); Red Cell Distribution Width 14.2 % (11.5-17.5); White Blood Count 8.8 K/mm3 (4.8-10.8)
[2024-02-05 12:21] LABS: Alanine Aminotransferase 16 U/L (12-78); Albumin Level 3.8 g/dl (3.5-5.0); Albumin/Globulin Ratio 1.4 (1.1-1.8); Alkaline Phosphatase 80 U/L (38-126); Anion Gap 8.1 mEq/L (5-15); Aspartate Amino Transferase 24 U/L (17-59); Bilirubin,Total 0.4 mg/dl (0.2-1.3); Blood Urea Nitrogen 17 mg/dl (9-20); Carbon Dioxide 26 mmol/L (22.0-30.0); Chloride 105 mmol/L (98-107); Cholesterol 137 mg/dl (140-200); Estimated Glomerular Filt Rate 62 ml/min (>60); GFR (African American) 75 ML/MIN (>60); Globulin 2.8 g/dL (1.3-3.2); Glucose 107 mg/dl (74-100); HDL Cholesterol 45 mg/dl (40-60); Potassium 4.1 mmoL/L (3.5-5.1); Sodium 135 mmol/L (136-145); Total Protein,Serum 6.6 g/dl (6.3-8.2); Triglycerides 150 mg/dl (30-150); VLDL Cholesterol 30 mg/dL (0-40)
[2024-02-05 12:32] LABS: Direct LDL Cholesterol 77.32 mg/dL (100-129)
[2024-02-05 12:39] LABS: 25-OH Vitamin D, Total 46.2 ng/mL (30-100)
[2024-02-05 12:52] LABS: Prostate Specific Ag Screen 0.6 ng/ml (0.0-4.0); Thyroid Stimulating Hormone 1.11 uIU/mL (0.465-4.68)
== END 2024-02-04 23:59 | disposition home or self-care (01) ==
LOC: LAB.DROPOF 02-09 09:30
PROVIDERS: PCP Family Medicine; Visit Provider Family Medicine
DX: E78.5 Hyperlipidemia, unspecified (principal); R53.83 Other fatigue; Z12.5 Encounter for screening for malignant neoplasm of prostate; E55.9 Vitamin D deficiency, unspecified
CPT/HCPCS: 80050; 80053; 80061; 82306; 84443; 85025; G0103

== ENCOUNTER 2025-02-16 09:46 | Outpatient (CLI) | payer OTHER, SELFPAY ==
[2025-02-16 15:31] LABS: Hematocrit 44.0 % (42.0-52.0); Hemoglobin 14.7 g/dL (14.1-18.0); Immature Granulocytes % 0.3 %; Mean Corpuscular HGB Conc 33.4 g/dL (31.8-35.4); Mean Corpuscular Hemoglobin 31.0 pg (27.0-31.2); Mean Corpuscular Volume 92.8 fl (80-94); Nucleated Red Blood Cells % 0 %; Platelet Count 384 K/mm3 (142-424); Red Blood Count 4.74 M/mm3 (4.60-6.20); Red Cell Distribution Width-SD 47.8 fL; White Blood Count 9.3 K/mm3 (4.8-10.8)
[2025-02-16 15:55] LABS: Alanine Aminotransferase 14 U/L (12-78); Albumin Level 4.5 g/dl (3.5-5.0); Albumin/Globulin Ratio 1.7 (1.1-1.8); Alkaline Phosphatase 80 U/L (38-126); Anion Gap 12.5 mEq/L (5-15); Aspartate Amino Transferase 20 U/L (17-59); Bilirubin,Total 0.4 mg/dl (0.2-1.3); Blood Urea Nitrogen 7 mg/dl (9-20); Calcium 9.3 mg/dl (8.4-10.2); Carbon Dioxide 26 mmol/L (22.0-30.0); Chloride 99 mmol/L (98-107); Cholesterol 119 mg/dl (140-200); Creatinine,Serum 1.00 mg/dl (0.66-1.25); Estimated Glomerular Filt Rate 76 ml/min (>60); GFR (African American) 92 ML/MIN (>60); Globulin 2.6 g/dL (1.3-3.2); Glucose 107 mg/dl (74-100); HDL Cholesterol 45 mg/dl (40-60); Potassium 4.5 mmoL/L (3.5-5.1); Sodium 133 mmol/L (136-145); Total Protein,Serum 7.1 g/dl (6.3-8.2); Triglycerides 84 mg/dl (30-150)
[2025-02-16 16:09] LABS: 25-OH Vitamin D, Total 46.3 ng/mL (30-100)
[2025-02-16 16:25] LABS: Thyroid Stimulating Hormone 1.39 uIU/mL (0.465-4.68)
[2025-02-16 18:33] LABS: Hemoglobin A1C 5.7 % (4.0-6.0)
== END 2025-02-16 23:59 ==
LOC: LAB.DROPOF 02-17 11:34
PROVIDERS: PCP Family Medicine; Visit Provider Family Medicine
DX: E78.5 Hyperlipidemia, unspecified (principal); R53.83 Other fatigue; R73.9 Hyperglycemia, unspecified; I10 Essential (primary) hypertension; E55.9 Vitamin D deficiency, unspecified; Z12.5 Encounter for screening for malignant neoplasm of prostate
CPT/HCPCS: 80053; 80061; 82306; 83036; 84443; 85025; G0103

== ENCOUNTER 2025-03-07 07:24 | Outpatient (CLI) | payer OTHER, SELFPAY ==
--- NOTE | 2025-03-07 07:30 | CT_ITS ---
FINAL REPORT TECHNIQUE: Thin section axial images were obtained through the lungs using a low-dose technique per lung cancer screening protocol. Reconstruction images were obtained using the axial data. Exam was performed using dose reduction technique. CLINICAL HISTORY: lung cancer screening. smoker, 1ppd, for 45 years COMPARISON: 04/14/2023 FINDINGS: CTDLvol: 2.90 DLP: 123.24 Current smoker 45 pack year history Lungs: Stable 4 mm right lower lobe nodule on series 4, image 59. No new pulmonary nodules. No consolidations. Lymph nodes: No thoracic lymphadenopathy. Mediastinum: Heart size is normal. Pleura/pericardium: No pleural or pericardial effusion. Other: Stable hypodense lesion left lobe of the liver, possible cyst. No acute abnormality in the upper abdomen. IMPRESSION: Stable 4 mm right lower lobe pulmonary nodule. Lung RADS: 2 Recommendation: 12 month follow-up low-dose chest CT Reviewed, Interpreted and Dictated by Ivy Weaver MD Transcribed by Becky Elizabeth Authenticated and [facility]
== END 2025-03-07 23:59 | disposition home or self-care (01) ==
LOC: RAD 07:26
PROVIDERS: PCP Family Medicine; Visit Provider Family Medicine
DX: Z12.2 Encounter for screening for malignant neoplasm of respiratory organs (principal); F17.210 Nicotine dependence, cigarettes, uncomplicated; R91.1 Solitary pulmonary nodule; J44.9 Chronic obstructive pulmonary disease, unspecified; K76.9 Liver disease, unspecified
CPT/HCPCS: 71271